=== PATIENT | female | born 1965 | race Two or more races ===

== ENCOUNTER 2022-09-13 15:19 | Inpatient (IN) | payer MEDICAID, OTHER ==
[~2022-09-13] VITALS: Ht 170.2 cm; Wt 135.0 kg
[2022-09-13] MEDS ORDERED: SODIUM CHLORIDE 0.9% 1,000 ML IV ONE (16:15)
[2022-09-13] MEDS ORDERED: cefTRIAXone 1GM/50ML D5W 50 ML IV ONE (16:30)
[2022-09-13 16:44] LABS: Basophils # (auto) 0 10 ^3/uL (0-0.2); Basophils % (auto) 0.4 % (0.0-2.0); Eosinophils # (auto) 0 10 ^3/uL (0-0.8); Eosinophils % (auto) 0.2 % (0.0-7.0); Hematocrit 40.2 % (36.0-46.0); Hemoglobin 13.7 g/dL (12.2-16.2); Lymphocytes # (auto) 0.9 10 ^3/uL (0.4-5.4); Lymphocytes % (auto) 7.8 % (10.0-50.0); Mean Corpuscular Hemoglobin 28.1 pg (28.0-32.0); Mean Corpuscular Hgb Conc. 34.1 g/dL (32.0-36.0); Mean Corpuscular Volume 82.5 fL (80.0-100.0); Neutrophils # (auto) 9.7 10 ^3/uL (1.6-8.6); Neutrophils % (auto) 82.6 % (37.0-80.0); Nucleated Red Blood Cells % 0.2 %; Red Blood Cells 4.87 10^6/uL (4.0-5.20); White Blood Cell 11.7 10^3/uL (4.4-10.8)
[2022-09-13 17:01] LABS: INR 1.11 (0.9-1.15); Partial Thromboplastin Time 36.8 sec (24.6-33.4)
[2022-09-13 17:04] LABS: Albumin 2.7 g/dL (3.4-5.0); Calcium 8.6 mg/dL (8.5-10.1); Potassium 3.9 mmol/L (3.5-5.1)
[2022-09-13 17:06] LABS: BUN/Creatinine Ratio 17.1 (10.0-20.0)
[2022-09-13 17:08] LABS: Bilirubin, Total 1.4 mg/dL (0.2-1.0); Total Protein 6.5 g/dL (6.4-8.2)
[2022-09-13] MEDS ORDERED: TEMAZEPAM 15 MG CAP PO PRN (21:15)
[2022-09-13] MEDS ORDERED: ACETAMINOPHEN 325 MG TAB PO PRN (21:15)
[2022-09-13] MEDS ORDERED: ONDANSETRON HCL 4 MG/2 ML VIAL IV PRN (21:15)
[2022-09-13] MEDS: HYDROcodone-ACET 5/325MG TAB PO PRN (21:53)
[2022-09-13] MEDS: CLINDAMYCIN 600MG IV 50 ML IV SCH (22:00)
[2022-09-14 01:05] LABS: Urine Bacteria NONE SEEN /hpf (None Seen); Urine Blood 2+ /uL (Negative); Urine Specific Gravity 1.005 (1.001-1.035); Urine WBC 1 /hpf (0 - 5)
[2022-09-14 06:49] LABS: Basophils # (auto) 0.1 10 ^3/uL (0-0.2); Basophils % (auto) 1.2 % (0.0-2.0); Eosinophils # (auto) 0.1 10 ^3/uL (0-0.8); Eosinophils % (auto) 0.6 % (0.0-7.0); Hematocrit 37.8 % (36.0-46.0); Hemoglobin 13.3 g/dL (12.2-16.2); Lymphocytes % (auto) 9.1 % (10.0-50.0); Mean Corpuscular Hemoglobin 28.8 pg (28.0-32.0); Mean Corpuscular Hgb Conc. 35.1 g/dL (32.0-36.0); Monocytes # (auto) 1.1 10 ^3/uL (0-1.3); Monocytes % (auto) 10.1 % (0.0-12.0); Neutrophils # (auto) 8.3 10 ^3/uL (1.6-8.6); Red Blood Cells 4.61 10^6/uL (4.0-5.20); Red Cell Distribution Width 13.8 % (11.8-14.3); White Blood Cell 10.5 10^3/uL (4.4-10.8)
[2022-09-14 07:15] LABS: Potassium 3.7 mmol/L (3.5-5.1)
[2022-09-14 07:32] LABS: Calcium 8.6 mg/dL (8.5-10.1)
[2022-09-14] MEDS: CLINDAMYCIN 600MG IV 50 ML IV SCH (07:57)
[2022-09-14] MEDS: HYDROcodone-ACET 5/325MG TAB PO PRN (08:59)
[2022-09-14] MEDS ORDERED: cefTRIAXone 1GM/50ML D5W 50 ML IV SCH (09:00)
[2022-09-14] MEDS: ENOXAPARIN SOD 40 MG/0.4 ML SYRINGE SC SCH (10:00)
[2022-09-14] MEDS: LOSARTAN POTASSIUM 50 MG TAB PO SCH (10:06)
[2022-09-14] MEDS ORDERED: VANCOMYCIN PER PHARMACY 0 MG IV SCH (13:15)
[2022-09-14] MEDS: SODIUM CHLORIDE 0.9% 1,000 ML IV SCH (13:46)
[2022-09-14] MEDS ORDERED: CEFEPIME 2 GM in SODIUM CHL 0.9% 50 ML IV SCH (14:00)
[2022-09-14] MEDS ORDERED: MORPHINE SULFATE INJ 2 MG/ml SYRG IV PRN (14:45)
[2022-09-14] MEDS: VANCOMYCIN 1GM/250ML 250 ML IV SCH ×2 (14:57→22:51)
[2022-09-14] MEDS ORDERED: CEFEPIME 1GM/ 50ML 50 ML IV SCH (16:00)
[2022-09-14 17:01] VITALS: BP 111/59
[2022-09-14] MEDS ORDERED: LOSA100T33 PO (17:21)
[2022-09-14 17:28] VITALS: BP 111/59
[2022-09-14] MEDS: CEFEPIME 1GM/ 50ML 50 ML IV SCH (18:08)
[2022-09-14 20:00] VITALS: BP 108/66
[2022-09-14] MEDS: OXYCODONE W/ ACETAMINOPHEN 5/325MG TABLET PO PRN (20:57)
[2022-09-14 22:00] VITALS: BP 105/51
[2022-09-15] MEDS: CEFEPIME 1GM/ 50ML 50 ML IV SCH ×3 (02:18→17:46)
[2022-09-15] MEDS: OXYCODONE W/ ACETAMINOPHEN 5/325MG TABLET PO PRN ×3 (03:39→20:14)
[2022-09-15 05:00] VITALS: BP 105/79
[2022-09-15] MEDS: VANCOMYCIN 1GM/250ML 250 ML IV SCH ×2 (05:56→15:40)
[2022-09-15 06:17] LABS: Basophils # (auto) 0.1 10 ^3/uL (0-0.2); Basophils % (auto) 0.8 % (0.0-2.0); Eosinophils # (auto) 0.2 10 ^3/uL (0-0.8); Eosinophils % (auto) 2.1 % (0.0-7.0); Hemoglobin 12.9 g/dL (12.2-16.2); Lymphocytes # (auto) 1.1 10 ^3/uL (0.4-5.4); Lymphocytes % (auto) 12.9 % (10.0-50.0); Mean Corpuscular Hemoglobin 29.6 pg (28.0-32.0); Mean Corpuscular Hgb Conc. 34.8 g/dL (32.0-36.0); Mean Corpuscular Volume 85.1 fL (80.0-100.0); Monocytes # (auto) 0.9 10 ^3/uL (0-1.3); Monocytes % (auto) 10.3 % (0.0-12.0); Neutrophils # (auto) 6.3 10 ^3/uL (1.6-8.6); Neutrophils % (auto) 73.9 % (37.0-80.0); Nucleated Red Blood Cells % 0.2 %; Red Blood Cells 4.35 10^6/uL (4.0-5.20); Red Cell Distribution Width 14.3 % (11.8-14.3); White Blood Cell 8.5 10^3/uL (4.4-10.8)
[2022-09-15 06:32] LABS: Calcium 8.6 mg/dL (8.5-10.1); Potassium 3.9 mmol/L (3.5-5.1)
[2022-09-15 06:36] LABS: BUN/Creatinine Ratio 14.8 (10.0-20.0)
[2022-09-15 09:00] VITALS: BP 139/70
[2022-09-15] MEDS: LOSARTAN POTASSIUM 50 MG TAB PO SCH (09:58)
[2022-09-15] MEDS: ENOXAPARIN SOD 40 MG/0.4 ML SYRINGE SC SCH (10:00)
[2022-09-15 13:00] VITALS: BP 145/68
[2022-09-15] MEDS: SODIUM CHLORIDE 0.9% 1,000 ML IV SCH ×3 (13:40→17:32)
[2022-09-15 17:00] VITALS: BP 118/70
[2022-09-15 21:37] VITALS: BP 119/57
[2022-09-16] MEDS: VANCOMYCIN 1GM/250ML 250 ML IV SCH ×3 (01:56→22:38)
[2022-09-16] MEDS: CEFEPIME 1GM/ 50ML 50 ML IV SCH ×3 (03:05→18:04)
[2022-09-16] MEDS: OXYCODONE W/ ACETAMINOPHEN 5/325MG TABLET PO PRN ×3 (04:35→18:26)
[2022-09-16 04:56] VITALS: BP 133/81
[2022-09-16] MEDS: SODIUM CHLORIDE 0.9% 1,000 ML IV SCH (05:15)
[2022-09-16 09:00] VITALS: BP 138/72
[2022-09-16] MEDS: LOSARTAN POTASSIUM 50 MG TAB PO SCH (09:46)
[2022-09-16] MEDS: ENOXAPARIN SOD 40 MG/0.4 ML SYRINGE SC SCH (09:46)
[2022-09-16 13:00] VITALS: BP 163/97
[2022-09-16 15:01] VITALS: BP 145/82
[2022-09-16 17:08] VITALS: BP 136/75
[2022-09-16 22:00] VITALS: BP 135/57
[2022-09-17] MEDS: OXYCODONE W/ ACETAMINOPHEN 5/325MG TABLET PO PRN ×3 (02:02→18:13)
[2022-09-17] MEDS: CEFEPIME 1GM/ 50ML 50 ML IV SCH ×3 (02:06→22:42)
[2022-09-17 05:00] VITALS: BP 122/52
[2022-09-17 06:38] LABS: Basophils # (auto) 0.1 10 ^3/uL (0-0.2); Basophils % (auto) 0.6 % (0.0-2.0); Eosinophils # (auto) 0.3 10 ^3/uL (0-0.8); Eosinophils % (auto) 3.8 % (0.0-7.0); Hematocrit 40.1 % (36.0-46.0); Hemoglobin 13.8 g/dL (12.2-16.2); Lymphocytes # (auto) 1.1 10 ^3/uL (0.4-5.4); Mean Corpuscular Hemoglobin 29.1 pg (28.0-32.0); Mean Corpuscular Hgb Conc. 34.5 g/dL (32.0-36.0); Mean Corpuscular Volume 84.4 fL (80.0-100.0); Monocytes # (auto) 0.6 10 ^3/uL (0-1.3); Monocytes % (auto) 6.6 % (0.0-12.0); Neutrophils # (auto) 6.8 10 ^3/uL (1.6-8.6); Nucleated Red Blood Cells % 0.1 %; Red Blood Cells 4.75 10^6/uL (4.0-5.20); Red Cell Distribution Width 14.5 % (11.8-14.3); White Blood Cell 8.8 10^3/uL (4.4-10.8)
[2022-09-17 06:40] LABS: BUN/Creatinine Ratio 17.7 (10.0-20.0); Calcium 9.1 mg/dL (8.5-10.1)
[2022-09-17 08:00] VITALS: BP 133/82
[2022-09-17] MEDS: VANCOMYCIN 1GM/250ML 250 ML IV SCH ×2 (08:37→18:13)
[2022-09-17 09:12] VITALS: BP 133/82
[2022-09-17] MEDS: ENOXAPARIN SOD 40 MG/0.4 ML SYRINGE SC SCH (09:43)
[2022-09-17] MEDS: LOSARTAN POTASSIUM 50 MG TAB PO SCH (09:43)
[2022-09-17] MEDS: DOCUSATE SOD 100 MG CAP PO PRN (09:47)
[2022-09-17 13:08] VITALS: BP 105/64
[2022-09-17 14:20] LABS: Hepatitis C Antibody Negative (Negative)
[2022-09-17 17:30] VITALS: BP 127/60
[2022-09-17 23:39] VITALS: BP 112/43
[2022-09-18] MEDS: OXYCODONE W/ ACETAMINOPHEN 5/325MG TABLET PO PRN ×4 (00:20→18:29)
[2022-09-18] MEDS: CEFEPIME 1GM/ 50ML 50 ML IV SCH ×3 (03:02→18:07)
[2022-09-18] MEDS: VANCOMYCIN 1GM/250ML 250 ML IV SCH ×2 (04:16→15:13)
[2022-09-18 05:07] VITALS: BP 126/62
[2022-09-18 08:30] VITALS: BP 120/68
[2022-09-18] MEDS: ENOXAPARIN SOD 40 MG/0.4 ML SYRINGE SC SCH (09:37)
[2022-09-18] MEDS: LOSARTAN POTASSIUM 50 MG TAB PO SCH (09:38)
[2022-09-18 13:00] VITALS: BP 144/73
[2022-09-18 17:00] VITALS: BP 126/71
[2022-09-18] MEDS: DOCUSATE SOD 100 MG CAP PO PRN (21:37)
[2022-09-18 22:00] VITALS: BP 140/65
[2022-09-19] MEDS: VANCOMYCIN 1GM/250ML 250 ML IV SCH ×3 (00:29→19:56)
[2022-09-19] MEDS: OXYCODONE W/ ACETAMINOPHEN 5/325MG TABLET PO PRN ×3 (00:40→19:56)
[2022-09-19] MEDS: CEFEPIME 1GM/ 50ML 50 ML IV SCH (02:20)
[2022-09-19 05:00] VITALS: BP 116/71
[2022-09-19 09:12] VITALS: BP 114/67
[2022-09-19] MEDS: LOSARTAN POTASSIUM 50 MG TAB PO SCH (09:42)
[2022-09-19] MEDS: DOCUSATE SOD 100 MG CAP PO PRN (09:42)
[2022-09-19] MEDS: ENOXAPARIN SOD 40 MG/0.4 ML SYRINGE SC SCH (09:42)
[2022-09-19 13:02] VITALS: BP 160/79
[2022-09-19 17:11] VITALS: BP 133/76
[2022-09-19 20:00] VITALS: BP 132/76
[2022-09-19 22:00] VITALS: BP 122/66
[2022-09-20 05:00] VITALS: BP 118/59
[2022-09-20] MEDS: VANCOMYCIN 1GM/250ML 250 ML IV SCH ×2 (05:16→18:14)
[2022-09-20 09:00] VITALS: BP 135/82
[2022-09-20] MEDS: ENOXAPARIN SOD 40 MG/0.4 ML SYRINGE SC SCH (09:33)
[2022-09-20] MEDS: OXYCODONE W/ ACETAMINOPHEN 5/325MG TABLET PO PRN ×2 (09:33→18:14)
[2022-09-20] MEDS: LOSARTAN POTASSIUM 50 MG TAB PO SCH (09:44)
[2022-09-20 12:42] VITALS: BP 129/67
[2022-09-20 20:00] VITALS: BP 129/67
[2022-09-20 22:00] VITALS: BP 117/64
[2022-09-21] MEDS: OXYCODONE W/ ACETAMINOPHEN 5/325MG TABLET PO PRN ×3 (01:43→21:18)
[2022-09-21] MEDS: VANCOMYCIN 1GM/250ML 250 ML IV SCH ×3 (01:50→21:18)
[2022-09-21 05:00] VITALS: BP 125/58
[2022-09-21 08:47] VITALS: BP 136/71
[2022-09-21] MEDS: ENOXAPARIN SOD 40 MG/0.4 ML SYRINGE SC SCH (10:07)
[2022-09-21] MEDS: LOSARTAN POTASSIUM 50 MG TAB PO SCH (10:07)
[2022-09-21 13:00] VITALS: BP 130/73
[2022-09-21 17:00] VITALS: BP 138/65
[2022-09-21 20:00] VITALS: BP 153/82
[2022-09-21 22:45] VITALS: BP 153/82
[2022-09-22 04:37] VITALS: BP 137/77
[2022-09-22] MEDS: OXYCODONE W/ ACETAMINOPHEN 5/325MG TABLET PO PRN ×3 (06:53→23:55)
[2022-09-22 09:00] VITALS: BP 117/75
[2022-09-22] MEDS: ENOXAPARIN SOD 40 MG/0.4 ML SYRINGE SC SCH (09:21)
[2022-09-22] MEDS: VANCOMYCIN 1GM/250ML 250 ML IV SCH (09:22)
[2022-09-22] MEDS: LOSARTAN POTASSIUM 50 MG TAB PO SCH (09:22)
[2022-09-22 13:00] VITALS: BP 129/81
[2022-09-22 17:00] VITALS: BP 120/66
[2022-09-22 20:00] VITALS: BP 139/73
[2022-09-22] MEDS ORDERED: VANCOMYCIN 1GM/250ML 250 ML IV SCH (21:00)
[2022-09-22] MEDS: LORazepam 2MG/ML-1ML VIAL IV PRN (21:14)
[2022-09-22 22:00] VITALS: BP 139/73
[2022-09-23 05:00] VITALS: BP 118/76
[2022-09-23 09:00] VITALS: BP 139/62
[2022-09-23] MEDS: ENOXAPARIN SOD 40 MG/0.4 ML SYRINGE SC SCH (11:19)
[2022-09-23] MEDS: LOSARTAN POTASSIUM 50 MG TAB PO SCH (11:20)
[2022-09-23] MEDS: OXYCODONE W/ ACETAMINOPHEN 5/325MG TABLET PO PRN ×2 (11:23→18:46)
[2022-09-23] MEDS ORDERED: VANCOMYCIN 1GM/250ML 250 ML IV SCH (12:00)
[2022-09-23 12:53] VITALS: BP 131/82
[2022-09-23 16:44] VITALS: BP 138/77
[2022-09-23] MEDS: LORazepam 2MG/ML-1ML VIAL IV PRN (19:00)
[2022-09-23 20:00] VITALS: BP 106/65
[2022-09-23 22:00] VITALS: BP 101/65
== END 2022-09-23 22:34 | DRG 720 ==
LOC: ER 15:19 → EDBD 15:19 → OVERFLOW 21:18 → EAST 09-14 16:35
PROVIDERS: ADMIT Nurse Practitioner; ATTEND Nurse Practitioner Acute Care
PROC: 0S9D3ZZ Drainage of Left Knee Joint, Percutaneous Approach (ICD-10-PCS; principal; 2022-09-15)
DX: A41.9 Sepsis, unspecified organism (principal); M00.9 Pyogenic arthritis, unspecified; L03.116 Cellulitis of left lower limb; E11.9 Type 2 diabetes mellitus without complications; E66.01 Morbid (severe) obesity due to excess calories; I10 Essential (primary) hypertension; M17.0 Bilateral primary osteoarthritis of knee; Z96.652 Presence of left artificial knee joint; Z20.822 Contact with and (suspected) exposure to COVID-19; Z83.3 Family history of diabetes mellitus; Z82.3 Family history of stroke; Z82.49 Family history of ischemic heart disease and other diseases of the circulatory system; Z68.42 Body mass index [BMI] 45.0-49.9, adult
CPT/HCPCS: 36415; 73560; 73700; 76942; 80048; 80053; 80202; 81001; 82565; 83605; 84484; 85025; 85610; 85652; 85730; 86141; 86803; 87040; 87077; 87186; 87205; 87340; 87426; 89051; 89060; 93926; 93970; 96361; 96365; 96366; 96367; 96372; 97110; 97163; 97530; G0378; J0696